=== PATIENT | female | born 1990 | race American Indian/Alaskan Native ===

== ENCOUNTER 2020-05-31 14:08 | Outpatient (CLI) | payer MEDICAID ==
[2020-05-31] MEDS ORDERED: LACTATED RINGERS 1,000 ML IV ONE (16:06)
[2020-05-31 16:28] LABS: Bilirubin,Urine NEG (Negative); Blood,Urine NEG (Negative); Color,Urine Yellow (Yellow); Protein,Urine <15 mg/dL mg/dL (Negative); Urobilinogen,Urine < 2.0 mg/dL (<2.0)
== END 2020-05-31 18:17 | disposition home or self-care (01) ==
LOC: EDSTATUS 15:23 → APU 15:29 → TRG 15:29
PROVIDERS: ATTEND Obstetrics & Gynecology
DX: O26.893 Other specified pregnancy related conditions, third trimester (principal); R10.30 Lower abdominal pain, unspecified; Z3A.30 30 weeks gestation of pregnancy
CPT/HCPCS: 59025; 81001

== ENCOUNTER 2020-08-01 15:01 | Inpatient (IN) | payer MEDICAID ==
[2020-08-01] MEDS ORDERED: MINERAL OIL 30 ML ORAL LIQD PO PRN (18:56)
[2020-08-01] MEDS ORDERED: miSOPROStol 200 MCG TAB PR PRN (18:56)
[2020-08-01] MEDS ORDERED: AMPICILLIN/NS 2 GM/100 ML 2 GM/100 ML BAG IV ONE (18:56)
[2020-08-01] MEDS ORDERED: LIDOCAINE (2%) 20 MG/1 ML VIAL 20 ML MDV INFILTRATI ONE (18:56)
[2020-08-01] MEDS ORDERED: ONDANSETRON 4 MG/2 ML INJ IV PRN (18:56)
[2020-08-01] MEDS ORDERED: NALOXONE 0.4 MG/1 ML INJ IV PRN (18:56)
[2020-08-01] MEDS ORDERED: ePHEDrine SULFATE 50 MG/1 ML INJ IV PRN (18:56)
[2020-08-01] MEDS ORDERED: TERBUTALINE 1 MG/1 ML INJ SUB-Q PRN (18:56)
[2020-08-01] MEDS ORDERED: OXYTOCIN DRIP 30 UNITS/500 ML BAG IV SCH (19:00)
--- NOTE | 2020-08-01 19:14 | History and Physical Report ---
History of Present Illness Date of examination: 08/01/20 Date of admission: 08/01/20 15:01 Chief complaint: Term induction of labor, morbid obesity in latent labor, admitted for delivery, now in early labor. 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 Pt admits to movement and feeling contractions intermittently but not painful. Denies LOF, vag bleed, and headache. 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 Past History Past Medical History: other (Morbid Obesity, Anemia) Past Surgical History: no surgical history Family/Genetic History: none Social history: no significant social history - Obstetrical History Expected Date of Delivery: 08/07/20 Actual Gestation: 39 Week(s) 1 Day(s) : 2 Hx # Term Pregnancies: 1 Number of Living Children: 1 Medications and Allergies Allergies Allergy/AdvReac Type Severity Reaction Status Date / Time No Known Allergies Allergy Verified 08/01/20 18:08 Active Meds: Active Medications Dinoprostone (Dinoprostone 10 Mg Vag Supp) 10 mg VG ONCE ONE Stop: 08/01/20 18:57 Ephedrine Sulfate (Ephedrine Sulfate 50 Mg/1 Ml Inj) 10 mg IV Q2M PRN PRN Reason: Hypotension Lactated Ringer's (Lactated Ringers) 1,000 mls @ 125 mls/hr IV DIRECT JUAREZ Oxytocin/Sodium Chloride (Pitocin/Ns 30 Unit/500ml) 30 units in 500 mls @ 40 mls/hr IV TITR JUAREZ; Protocol Ampicillin Sodium (Ampicillin/Ns 2 Gm/100 Ml) 2 gm in 100 mls @ 100 mls/hr IV ONCE ONE; Protocol Stop: 08/01/20 19:55 Lidocaine (Lidocaine (2%) 20 Mg/1 Ml Vial 20 Ml Mdv) 20 ml INFILTRATI ONCE ONE Stop: 08/01/20 18:57 Mineral Oil (Mineral Oil 30 Ml Oral Liqd) 30 ml PO QHS PRN PRN Reason: Constipation Misoprostol (Misoprostol 200 Mcg Tab) 800 mcg NC ONCE PRN PRN Reason: Uterine Bleeding Nalbuphine HCl (Nalbuphine 10 Mg/1 Ml Inj) 10 mg IV Q2H PRN PRN Reason: Pain, Moderate (4-6) Naloxone HCl (Naloxone 0.4 Mg/1 Ml Inj) 0.1 mg IV Q2MIN PRN PRN Reason: Res Rate </= 8 or 02 SAT < 92% Ondansetron HCl (Ondansetron 4 Mg/2 Ml Inj) 4 mg IV Q8H PRN PRN Reason: Nausea And Vomiting Terbutaline Sulfate (Terbutaline 1 Mg/1 Ml Inj) 0.25 mg SUB-Q ONCE PRN PRN Reason: Hyperstimulation/Hypertonicity - Vital Signs Vital signs: Vital Signs Pulse BP Pulse Ox 86 119/61 100 08/01/20 18:23 08/01/20 18:23 08/01/20 18:23 Temp Pulse Resp BP Pulse Ox 98.4 F 99 H 20 119/61 98 08/01/20 18:50 08/01/20 19:01 08/01/20 18:50 08/01/20 18:50 08/01/20 19:01 - Physical Exam Breasts: Positive: deferred Cardiovascular: Regular rate Lungs: Positive: Normal air movement Abdomen: Positive: other (gravid enlarged uterus at term) Genitourinary (Female): Positive: normal external genitalia Vulva: both: normal (normal with any active herpetic lesions) Uterus: Positive: enlarged Adnexa: both: normal (limited due to gravid uterus) Anus/Rectum: Positive: normal perianal skin Extremities: Positive: normal Deep Tendon Reflex Grade: Normal +2 - Obstetrical FHR: category 1 Uterine Contraction Monitor Mode: External Cervical Dilatation: 2 Cervical Effacement Percentage: 50 station: -3 Uterine Contraction Frequency (min): ocassional Uterine Contraction Pattern: Irregular Uterine Tone Measurement Phase: Resting Results All other labs normal. 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 Expect
[2020-08-01] MEDS ORDERED: DINOPROSTONE 10 MG VAG SUPP VG ONE (19:56)
[2020-08-01 20:26] LABS: Hematocrit 35.1 % (30.3-42.9); Hemoglobin 11.1 gm/dl (10.1-14.3); Mean Corpuscular HGB Conc 32 % (30-34); Mean Corpuscular Volume 74 fl (79-97); Platelet Count 224 K/mm3 (140-440); Red Blood Count 4.75 M/mm3 (3.65-5.03)
[2020-08-01 20:52] LABS: Red Cell Distribution Width 23.5 % (13.2-15.2)
[2020-08-02] MEDS ORDERED: AMPICILLIN/NS 2 GM/100 ML 2 GM/100 ML BAG IV ONE (02:15)
[2020-08-02] MEDS: NalbUPHINE 10 MG/1 ML INJ IV PRN ×2 (03:02→05:11)
--- NOTE | 2020-08-02 11:20 | Progress Note ---
Assessment and Plan - Patient Problems (1) Encounter for induction of labor Current Visit: Yes Status: Acute Plan to address problem: Cervidil was removed around 0830 Initiate Pitocin @ 2mu/min as tolerated Epidural as desired Anticipate (2) Positive GBS test Current Visit: Yes Status: Acute Plan to address problem: Continue GBS prophylaxis (3) Morbid obesity with BMI of 40.0-44.9, adult Current Visit: Yes Status: Chronic Subjective - Subjective Date of service: 08/02/20 Principal diagnosis: IOL; MO Interval history: See admission H & P and OB progress notes Patient reports: movement normal, contractions (irregular), no new complaints, no loss of fluid, no vaginal bleeding Objective - Vital Signs Vital Signs: Vital Signs - 12hr 08/01/20 08/02/20 08/02/20 23:17 03:13 03:18 Temperature Pulse Rate 29 L 110 H 90 Respiratory Rate Blood Pressure 114/58 O2 Sat by Pulse 46 L 99 97 Oximetry 08/02/20 08/02/20 08/02/20 03:23 03:26 03:28 Temperature Pulse Rate 92 H 89 95 H Respiratory Rate Blood Pressure O2 Sat by Pulse 96 94 95 Oximetry 08/02/20 08/02/20 08/02/20 03:33 03:36 03:38 Temperature Pulse Rate 94 H 99 H 100 H Respiratory Rate Blood Pressure O2 Sat by Pulse 97 94 96 Oximetry 08/02/20 08/02/20 08/02/20 03:43 03:48 03:52 Temperature Pulse Rate 97 H 100 H 93 H Respiratory Rate Blood Pressure O2 Sat by Pulse 94 96 91 Oximetry 08/02/20 08/02/20 08/02/20 03:53 03:58 04:03 Temperature Pulse Rate 91 H 110 H 98 H Respiratory Rate Blood Pressure O2 Sat by Pulse 99 97 95 Oximetry 08/02/20 08/02/20 08/02/20 04:08 04:11 04:13 Temperature Pulse Rate 93 H 98 H 105 H Respiratory Rate Blood Pressure O2 Sat by Pulse 98 94 97 Oximetry 08/02/20 08/02/20 08/02/20 04:18 04:23 04:28 Temperature Pulse Rate 106 H 105 H 107 H Respiratory Rate Blood Pressure O2 Sat by Pulse 97 97 98 Oximetry 08/02/20 08/02/20 08/02/20 04:31 04:33 05:12 Temperature Pulse Rate 55 L 100 H 105 H Respiratory Rate Blood Pressure O2 Sat by Pulse 85 97 97 Oximetry 08/02/20 08/02/20 08/02/20 05:17 05:52 05:57 Temperature Pulse Rate 85 110 H 93 H Respiratory Rate Blood Pressure O2 Sat by Pulse 97 97 98 Oximetry 08/02/20 08/02/20 08/02/20 06:02 06:07 06:08 Temperature Pulse Rate 95 H 94 H 99 H Respiratory Rate Blood Pressure O2 Sat by Pulse 96 95 94 Oximetry 08/02/20 08/02/20 08/02/20 06:12 06:17 06:20 Temperature Pulse Rate 90 98 H 92 H Respiratory Rate Blood Pressure O2 Sat by Pulse 96 96 94 Oximetry 08/02/20 08/02/20 08/02/20 06:22 06:25 06:27 Temperature Pulse Rate 90 93 H 99 H Respiratory Rate Blood Pressure O2 Sat by Pulse 95 93 95 Oximetry 08/02/20 08/02/20 08/02/20 06:32 06:33 06:37 Temperature Pulse Rate 95 H 98 H 101 H Respiratory Rate Blood Pressure O2 Sat by Pulse 96 94 97 Oximetry 08/02/20 08/02/20 08/02/20 06:42 06:47 06:52 Temperature Pulse Rate 106 H 98 H 106 H Respiratory Rate Blood Pressure O2 Sat by Pulse 98 97 98 Oximetry 08/02/20 08/02/20 08/02/20 06:57 07:02 07:07 Temperature Pulse Rate 97 H 101 H 104 H Respiratory Rate Blood Pressure O2 Sat by Pulse 97 98 98 Oximetry 08/02/20 08/02/20 08/02/20 07:12 07:17 07:22 Temperature Pulse Rate 92 H 93 H 95 H Respiratory Rate Blood Pressure O2 Sat by Pulse 97 98 97 Oximetry 08/02/20 08/02/20 08/02/20 07:27 07:32 07:37 Temperature Pulse Rate 93 H 99 H 94 H Respiratory Rate Blood Pressure O2 Sat by Pulse 99 98 98 Oximetry 08/02/20 08/02/20 08/02/20 07:42 08:14 08:22 Temperature 98.6 F Pulse Rate 101 H 93 H Respiratory 18 Rate Blood Pressure 114/63 O2 Sat by Pulse 100 Oximetry - Exam Breasts: deferred Cardiovascular: Regular rate Lungs: Normal air movement FHR: category 1 Uterine Contraction Monitor Mode: External Cervical Dilatation: 4 (per RN) Cervical Effacement Percentage: 60 station: -3 Uterine Contraction Frequency (min): 1-5 Uterine Contraction Pattern: Irregular Uterine Tone Measurement Phase: Resting Uterine Contraction Intensity: Mild - Labs Labs: Abnormal Labs 08/01/20 20:11 MCV 74 L MCH 23 L RDW 23.5 H Laboratory Results - last 24 hr 08/01/20 08/01/20 20:11 20:11 WBC 9.4 RBC 4.75 Hgb 11.1 Hct 35.1 MCV 74 L MCH 23 L MCHC 32 RDW 23.5 H Plt Count 224 Blood Type AB POSITIVE Antibody Screen Negative
[2020-08-02] MEDS: AMPICILLIN/NS 1 GM/50 ML 1 GM/50 ML BAG IV SCH ×3 (11:39→21:04)
[2020-08-02] MEDS: LACTATED RINGERS 1,000 ML IV SCH (11:39)
[2020-08-02] MEDS: OXYTOCIN DRIP 30 UNITS/500 ML BAG IV SCH (12:10)
--- NOTE | 2020-08-02 22:15 | Progress Note ---
Assessment and Plan - Patient Problems (1) Encounter for induction of labor Current Visit: Yes Status: Acute Plan to address problem: Give Pitocin break, may eat and shower then, Initiate low-dose Pitocin as tolerated Epidural as desired Anticipate (2) Positive GBS test Current Visit: Yes Status: Acute Plan to address problem: Continue GBS prophylaxis (3) Morbid obesity with BMI of 40.0-44.9, adult Current Visit: Yes Status: Chronic Subjective - Subjective Date of service: 08/02/20 Principal diagnosis: IOL; MO Interval history: See admission H & P and OB progress notes Patient reports: movement normal, contractions (irregular), no new complaints, no loss of fluid, no vaginal bleeding Objective - Vital Signs Vital Signs: Vital Signs - 12hr 08/02/20 08/02/20 08/02/20 17:13 17:17 19:00 Temperature 99.0 F 98 F Pulse Rate 90 Respiratory 19 Rate Blood Pressure 128/74 08/02/20 20:14 Temperature Pulse Rate 100 H Respiratory Rate Blood Pressure 121/68 - Exam Breasts: deferred Cardiovascular: Regular rate Lungs: Normal air movement FHR: category 1 Uterine Contraction Monitor Mode: External Cervical Dilatation: 4 (per RN) Cervical Effacement Percentage: 60 (Pitocin @ 12mu/min) station: -3 Uterine Contraction Frequency (min): 2-4 Uterine Contraction Pattern: Irregular Uterine Tone Measurement Phase: Resting Uterine Contraction Intensity: Mild Extremities: edema - Labs Labs: Abnormal Labs 08/01/20 20:11 MCV 74 L MCH 23 L RDW 23.5 H
[2020-08-03] MEDS: AMPICILLIN/NS 1 GM/50 ML 1 GM/50 ML BAG IV SCH ×2 (01:13→04:49)
[2020-08-03] MEDS: OXYTOCIN DRIP 30 UNITS/500 ML BAG IV SCH (01:14)
[2020-08-03] MEDS: LACTATED RINGERS 1,000 ML IV SCH (04:49)
--- NOTE | 2020-08-03 10:10 | Progress Note ---
Assessment and Plan A: IUP @ 39 3/7 Weeks Category I Tracing Morbid Maternal Obesity GBS Positive P: Continue Pitocin Induction Continue GBS Prophylaxis Multiple Maternal Position Changes Subjective - Subjective Principal diagnosis: IOL; MO Patient reports: movement normal, contractions (irregular), no new complaints, no loss of fluid, no vaginal bleeding Objective - Vital Signs Vital Signs: Vital Signs - 12hr 08/03/20 08/03/20 08/03/20 01:13 01:32 04:41 Temperature 98.2 F Pulse Rate 93 H Respiratory 19 Rate Blood Pressure 119/70 Blood Pressure [Right] O2 Sat by Pulse Oximetry 08/03/20 08/03/20 08/03/20 04:51 09:30 09:33 Temperature 97.6 F Pulse Rate 93 H 93 H 96 H Respiratory 18 Rate Blood Pressure 121/56 123/74 Blood Pressure 123/74 [Right] O2 Sat by Pulse 98 97 Oximetry 08/03/20 08/03/20 08/03/20 09:38 09:43 09:48 Temperature Pulse Rate 95 H 99 H 92 H Respiratory Rate Blood Pressure Blood Pressure [Right] O2 Sat by Pulse 98 98 97 Oximetry - Exam Breasts: normal Cardiovascular: Regular rate Lungs: Clear to auscultation, Normal air movement Abdomen: Present: normal appearance, soft, normal bowel sounds Vulva: right: lichenification Uterus: Present: normal, firm, fundal height above umbilicus FHR: category 1 Uterine Contraction Monitor Mode: External Cervical Dilatation: 3 (intact; Vtx) Cervical Effacement Percentage: 60 station: -2 Uterine Contraction Pattern: Irregular Uterine Tone Measurement Phase: Resting Uterine Contraction Intensity: Mild Extremities: normal - Labs Labs: Abnormal Labs 08/01/20 20:11 MCV 74 L MCH 23 L RDW 23.5 H
--- NOTE | 2020-08-03 13:46 | Progress Note ---
Assessment and Plan A: IUP @ 39 3/7 Weeks Category I Tracing Morbid Maternal Obesity GBS Positive P: AROM IUPC placed Continue Pitocin Induction Continue GBS Prophylaxis Prepare for Epidural Anesthesia Subjective - Subjective Date of service: 08/03/20 Principal diagnosis: IOL; MO Patient reports: movement normal, contractions (regular, more intense), no new complaints, no vaginal bleeding Objective - Vital Signs Vital Signs: Vital Signs - 12hr 08/03/20 08/03/20 08/03/20 04:41 04:51 09:30 Temperature 97.6 F Pulse Rate 93 H 93 H Respiratory 19 18 Rate Blood Pressure 121/56 Blood Pressure 123/74 [Right] O2 Sat by Pulse 98 Oximetry 08/03/20 08/03/20 08/03/20 09:33 09:38 09:43 Temperature Pulse Rate 96 H 95 H 99 H Respiratory Rate Blood Pressure 123/74 Blood Pressure [Right] O2 Sat by Pulse 97 98 98 Oximetry 08/03/20 08/03/20 08/03/20 09:48 10:32 10:35 Temperature Pulse Rate 92 H 102 H 25 L Respiratory Rate Blood Pressure Blood Pressure [Right] O2 Sat by Pulse 97 99 78 L Oximetry 08/03/20 08/03/20 08/03/20 11:16 11:21 11:26 Temperature Pulse Rate 92 H 85 86 Respiratory Rate Blood Pressure Blood Pressure [Right] O2 Sat by Pulse 98 98 98 Oximetry 08/03/20 08/03/20 08/03/20 11:32 11:33 11:37 Temperature Pulse Rate 83 88 88 Respiratory Rate Blood Pressure Blood Pressure [Right] O2 Sat by Pulse 98 94 93 Oximetry 08/03/20 08/03/20 08/03/20 11:42 12:27 12:31 Temperature Pulse Rate 78 86 99 H Respiratory Rate Blood Pressure Blood Pressure [Right] O2 Sat by Pulse 98 99 86 Oximetry 08/03/20 12:32 Temperature Pulse Rate 82 Respiratory Rate Blood Pressure Blood Pressure [Right] O2 Sat by Pulse 100 Oximetry - Exam Breasts: normal Cardiovascular: Regular rate Lungs: Clear to auscultation, Normal air movement Abdomen: Present: normal appearance, soft Uterus: Present: normal, firm, fundal height above umbilicus FHR: category 1 Uterine Contraction Monitor Mode: External Cervical Dilatation: 3 (Moderate amount of clear fluid upon AROM at 1331) Cervical Effacement Percentage: 70 station: -2 Uterine Contraction Frequency (min): 1-2 Uterine Contraction Duration: 60 Uterine Contraction Pattern: Regular Uterine Tone Measurement Phase: Resting Uterine Contraction Intensity: Moderate Extremities: normal - Labs Labs: Abnormal Labs 08/01/20 20:11 MCV 74 L MCH 23 L RDW 23.5 H
--- NOTE | 2020-08-03 15:27 | Anesthesia Consultation ---
Anesthesia Consult and Med Hx Date of service: 08/03/20 - Airway Anesthetic Teeth Evaluation: Good ROM Head & Neck: Adequate Mental/Hyoid Distance: Adequate Mallampati Class: Class II Intubation Access Assessment: Probably Good - Pulmonary Exam CTA: Yes - Cardiac Exam Cardiac Exam: RRR - Pre-Operative Health Status ASA Pre-Surgery Classification: ASA3 Proposed Anesthetic Plan: Epidural - Pulmonary Hx Smoking: No Hx Asthma: No Hx Respiratory Symptoms: No SOB: No COPD: No Home Oxygen Therapy: No Hx Pneumonia: No Hx Sleep Apnea: No - Cardiovascular System Hx Hypertension: No Hx Coronary Artery Disease: No Hx Heart Attack/AMI: No Hx Angina: No Hx Percutaneous Transluminal Coronary Angioplasty (PTCA): No Hx Cardia Arrhythmia: No Hx Pacemaker: No Hx Internal Defibrillator: No Hx Valvular Heart Disease: No Hx Heart Murmur: No Hx Peripheral Vascular Disease: No - Central Nervous System Hx Neuromuscular Disorder: No Hx Seizures: No CVA: No Hx Back Pain: No Hx Psychiatric Problems: No - Gastrointestinal Hx Ulcer: No Hx Gastroesophageal Reflux Disease: No - Endocrine Hx Renal Disease: No Hx End Stage Renal Disease: No Hx Cirrhosis: No Hx Liver Disease: No Hx Insulin Dependent Diabetes: No Hx Non-Insulin Dependent Diabetes: No Hx Thyroid Disease: No Hx Hypothyroidism: No Hx Hyperthyroidism: No - Hematic Hx Anemia: Yes Hx Sickle Cell Disease: No - Other Systems Hx Alcohol Use: No Hx Substance Use: No Hx Cancer: No Hx Obesity: Yes
[2020-08-03] MEDS ORDERED: BUTORPHANOL 2 MG/1 ML INJ ONE (15:29)
[2020-08-03] MEDS ORDERED: BUTORPHANOL 2 MG/1 ML INJ IV ONE (15:30)
--- NOTE | 2020-08-03 15:30 | Progress Note ---
Labor Epidural - Labor Epidural Start Time: 21:19 Stop Time: 21:42 Performed by:: CHARLA SMITH Procedure: Patient is requesting a laboring epidural for laboring pain. Patient IDed, H&P reviewed, all questions and concerns were answered, and consent was signed. Timeout was performed at bedside. Patient in sitting position. Sterile prep and drape was performed. [3] ml of 1% lidocaine skin wheal at L[3]- L [4]. 18- gauge Tuohy epidural needle was advanced to loss of resistance with air technique multiple attempts which was unsuccess. Procedure was aborted. Patient wishes to try placing again. Timeout was performed at bedside. Patient in sitting position. Sterile prep and drape was performed. [5] ml of 1% lidocaine skin wheal at L[3]- L [4]. 18-gauge Tuohy epidural needle was advanced to loss of resistance with air technique to 9.5cm. Negative CSF negative blood via Tuohy needle. #27g Spinal needle clear, free flowing CSF, Pecedex 10 mcg. Epidural catheter advanced to [14] centimeters. [negative] Aspiration [negative] test dose. Sterile dressing applied. Patient tolerated procedure.
[2020-08-03] MEDS ORDERED: NALOXONE 2 MG/2 ML INJ IV PRN (16:00)
[2020-08-03] MEDS ORDERED: BUTORPHANOL 2 MG/1 ML INJ IV SCH (17:30)
--- NOTE | 2020-08-03 18:30 | Progress Note ---
Assessment and Plan A: IUP @ 39 3/7 Weeks Category II Tracing Morbid Maternal Obesity Poor Maternal Pain Control GBS Positive P: Continue Pitocin Induction Continue GBS Prophylaxis Consult Anesthesia for Epidural Subjective - Subjective Date of service: 08/03/20 Principal diagnosis: IOL; MO Patient reports: movement normal, contractions, other (Complains of intense contraction pain; IV pain medication (Stadol) is ineffective; RYAN Powers, attemped to place epidural x 4 but was unsuccessful due to body habitus and poor patient control. Patient agrees for RYAN Powers, to return to room and attempt to place epidural again), no new complaints, no vaginal bleeding Objective - Vital Signs Vital Signs: Vital Signs - 12hr 08/03/20 08/03/20 08/03/20 09:30 09:33 09:38 Temperature 97.6 F Pulse Rate 93 H 96 H 95 H Respiratory 18 Rate Blood Pressure 123/74 Blood Pressure 123/74 [Right] O2 Sat by Pulse 98 97 98 Oximetry 08/03/20 08/03/20 08/03/20 09:43 09:48 10:32 Temperature Pulse Rate 99 H 92 H 102 H Respiratory Rate Blood Pressure Blood Pressure [Right] O2 Sat by Pulse 98 97 99 Oximetry 08/03/20 08/03/20 08/03/20 10:35 11:16 11:21 Temperature Pulse Rate 25 L 92 H 85 Respiratory Rate Blood Pressure Blood Pressure [Right] O2 Sat by Pulse 78 L 98 98 Oximetry 08/03/20 08/03/20 08/03/20 11:26 11:32 11:33 Temperature Pulse Rate 86 83 88 Respiratory Rate Blood Pressure Blood Pressure [Right] O2 Sat by Pulse 98 98 94 Oximetry 08/03/20 08/03/20 08/03/20 11:37 11:42 12:27 Temperature Pulse Rate 88 78 86 Respiratory Rate Blood Pressure Blood Pressure [Right] O2 Sat by Pulse 93 98 99 Oximetry 08/03/20 08/03/20 08/03/20 12:31 12:32 14:09 Temperature Pulse Rate 99 H 82 87 Respiratory Rate Blood Pressure Blood Pressure [Right] O2 Sat by Pulse 86 100 100 Oximetry 08/03/20 08/03/20 08/03/20 14:14 16:04 16:09 Temperature Pulse Rate 83 104 H 93 H Respiratory Rate Blood Pressure Blood Pressure [Right] O2 Sat by Pulse 100 100 96 Oximetry 08/03/20 08/03/20 08/03/20 16:12 16:14 16:19 Temperature Pulse Rate 91 H 86 92 H Respiratory Rate Blood Pressure Blood Pressure [Right] O2 Sat by Pulse 94 98 100 Oximetry 08/03/20 08/03/20 08/03/20 16:24 16:26 16:29 Temperature Pulse Rate 94 H 86 90 Respiratory Rate Blood Pressure Blood Pressure [Right] O2 Sat by Pulse 96 93 98 Oximetry 08/03/20 08/03/20 08/03/20 16:34 16:39 16:44 Temperature Pulse Rate 89 87 96 H Respiratory Rate Blood Pressure Blood Pressure [Right] O2 Sat by Pulse 96 98 99 Oximetry 08/03/20 08/03/20 08/03/20 16:49 16:54 16:55 Temperature Pulse Rate 93 H 108 H 100 H Respiratory Rate Blood Pressure Blood Pressure [Right] O2 Sat by Pulse 96 98 92 Oximetry 08/03/20 16:59 Temperature Pulse Rate 95 H Respiratory Rate Blood Pressure Blood Pressure [Right] O2 Sat by Pulse 98 Oximetry - Exam Breasts: normal Cardiovascular: Regular rate Lungs: Clear to auscultation, Normal air movement Abdomen: Present: normal appearance, soft Uterus: Present: normal, firm, fundal height above umbilicus FHR: category 2, other FHR comments: FHR: 138, min to moderate varability, +isolated mild varabile decels, and +isolated early decels, -accels Uterine Contraction Monitor Mode: Internal Cervical Dilatation: 4.5 (leaking a moderate amount of clear fluid) Cervical Effacement Percentage: 70 station: -2 Uterine Contraction Frequency (min): 1-5 Uterine Contraction Pattern: Irregular Uterine Tone Measurement Phase: Resting Uterine Contraction Intensity: Moderate Extremities: normal - Labs Labs: Abnormal Labs 08/01/20 20:11 MCV 74 L MCH 23 L RDW 23.5 H Laboratory Results - last 24 hr 08/02/20 11:26 Coronavirus (PCR) Negative
[2020-08-03] MEDS ORDERED: fentaNYL 100 MCG/2 ML INJ IV ONE (19:23)
[2020-08-03] MEDS: fentaNYL-BUPIV 2 MCG/ML-0.125% 200 MCG/100 ML BAG EPIDURAL SCH (22:00)
[2020-08-03] MEDS: ePHEDrine SULFATE 50 MG/1 ML INJ IV PRN (22:44)
[2020-08-04] MEDS: ePHEDrine SULFATE 50 MG/1 ML INJ IV PRN ×2 (00:26→01:54)
[2020-08-04] MEDS: LACTATED RINGERS 1,000 ML IV SCH ×2 (02:17→07:15)
--- NOTE | 2020-08-04 03:22 | Progress Note ---
Assessment and Plan A: IUP @ 39 3/7 Weeks Category I Tracing Morbid Maternal Obesity GBS Positive P: ISE Placed Continue Pitocin Induction Continue GBS Prophylaxis Consult Anesthesia for Epidural Subjective - Subjective Date of service: 08/04/20 Principal diagnosis: IOL; MO Patient reports: movement normal, other (Resting well under epidural anesthesia), no new complaints, no vaginal bleeding Objective - Vital Signs Vital Signs: Vital Signs - 12hr 08/03/20 08/03/20 08/03/20 16:04 16:09 16:12 Temperature Pulse Rate 104 H 93 H 91 H Respiratory Rate Blood Pressure Blood Pressure [Right] O2 Sat by Pulse 100 96 94 Oximetry 08/03/20 08/03/20 08/03/20 16:14 16:19 16:24 Temperature Pulse Rate 86 92 H 94 H Respiratory Rate Blood Pressure Blood Pressure [Right] O2 Sat by Pulse 98 100 96 Oximetry 08/03/20 08/03/20 08/03/20 16:26 16:29 16:34 Temperature Pulse Rate 86 90 89 Respiratory Rate Blood Pressure Blood Pressure [Right] O2 Sat by Pulse 93 98 96 Oximetry 08/03/20 08/03/20 08/03/20 16:39 16:44 16:49 Temperature Pulse Rate 87 96 H 93 H Respiratory Rate Blood Pressure Blood Pressure [Right] O2 Sat by Pulse 98 99 96 Oximetry 08/03/20 08/03/20 08/03/20 16:54 16:55 16:59 Temperature Pulse Rate 108 H 100 H 95 H Respiratory Rate Blood Pressure Blood Pressure [Right] O2 Sat by Pulse 98 92 98 Oximetry 08/03/20 08/03/20 08/03/20 19:16 19:18 19:19 Temperature 98.1 F Pulse Rate 112 H 112 H 107 H Respiratory 12 Rate Blood Pressure 133/84 Blood Pressure 133/84 [Right] O2 Sat by Pulse 99 98 68 L Oximetry 08/03/20 08/03/20 08/03/20 19:23 19:25 19:28 Temperature Pulse Rate 91 H 103 H 93 H Respiratory Rate Blood Pressure Blood Pressure [Right] O2 Sat by Pulse 98 93 99 Oximetry 08/03/20 08/03/20 08/03/20 19:33 19:38 19:43 Temperature Pulse Rate 119 H 86 103 H Respiratory Rate Blood Pressure Blood Pressure [Right] O2 Sat by Pulse 93 96 100 Oximetry 08/03/20 08/03/20 08/03/20 19:48 19:53 19:58 Temperature Pulse Rate 99 H 91 H 87 Respiratory Rate Blood Pressure Blood Pressure [Right] O2 Sat by Pulse 99 98 97 Oximetry 08/03/20 08/03/20 08/03/20 20:03 20:08 20:13 Temperature Pulse Rate 103 H 92 H 94 H Respiratory Rate Blood Pressure Blood Pressure [Right] O2 Sat by Pulse 96 99 95 Oximetry 08/03/20 08/03/20 08/03/20 20:18 20:23 20:28 Temperature Pulse Rate 87 88 105 H Respiratory Rate Blood Pressure Blood Pressure [Right] O2 Sat by Pulse 100 96 99 Oximetry 08/03/20 08/03/20 08/03/20 21:17 21:22 21:27 Temperature Pulse Rate 104 H 98 H 105 H Respiratory Rate Blood Pressure Blood Pressure [Right] O2 Sat by Pulse 99 95 100 Oximetry 08/03/20 08/03/20 08/03/20 21:32 21:37 21:42 Temperature Pulse Rate 104 H 105 H 102 H Respiratory Rate Blood Pressure Blood Pressure [Right] O2 Sat by Pulse 100 98 100 Oximetry 08/03/20 08/03/20 08/03/20 21:47 21:49 21:52 Temperature Pulse Rate 111 H 114 H 111 H Respiratory Rate Blood Pressure 117/57 Blood Pressure [Right] O2 Sat by Pulse 100 99 Oximetry 08/03/20 08/03/20 08/03/20 21:57 22:02 22:07 Temperature Pulse Rate 104 H 104 H 96 H Respiratory Rate Blood Pressure 107/51 Blood Pressure [Right] O2 Sat by Pulse 99 99 100 Oximetry 08/03/20 08/03/20 08/03/20 22:10 22:12 22:17 Temperature Pulse Rate 105 H 77 93 H Respiratory Rate Blood Pressure 92/55 Blood Pressure [Right] O2 Sat by Pulse 99 100 Oximetry 08/03/20 08/03/20 08/03/20 22:22 22:26 22:27 Temperature Pulse Rate 89 87 88 Respiratory Rate Blood Pressure 85/45 Blood Pressure [Right] O2 Sat by Pulse 100 100 Oximetry 08/03/20 08/03/20 08/03/20 22:32 22:37 22:40 Temperature Pulse Rate 91 H 90 89 Respiratory Rate Blood Pressure 71/40 Blood Pressure [Right] O2 Sat by Pulse 100 99 Oximetry 08/03/20 08/03/20 08/03/20 22:41 22:42 22:47 Temperature Pulse Rate 96 H 102 H 80 Respiratory Rate Blood Pressure 73/38 Blood Pressure [Right] O2 Sat by Pulse 100 98 Oximetry 08/03/20 08/03/20 08/03/20 22:52 22:56 22:57 Temperature Pulse Rate 90 85 93 H Respiratory Rate Blood Pressure 69/38 Blood Pressure [Right] O2 Sat by Pulse 99 97 Oximetry 08/03/20 08/03/20 08/03/20 23:02 23:07 23:10 Temperature Pulse Rate 105 H 95 H 97 H Respiratory Rate Blood Pressure Blood Pressure [Right] O2 Sat by Pulse 100 98 94 Oximetry 08/03/20 08/03/20 08/03/20 23:11 23:12 23:17 Temperature Pulse Rate 100 H 100 H 92 H Respiratory Rate Blood Pressure 69/33 Blood Pressure [Right] O2 Sat by Pulse 87 100 Oximetry 08/03/20 08/03/20 08/03/20 23:22 23:26 23:27 Temperature Pulse Rate 99 H 94 H 89 Respiratory Rate Blood Pressure 72/37 Blood Pressure [Right] O2 Sat by Pulse 100 98 Oximetry 08/03/20 08/03/20 08/03/20 23:32 23:37 23:42 Temperature Pulse Rate 95 H 88 87 Respiratory Rate Blood Pressure 89/45 Blood Pressure [Right] O2 Sat by Pulse 98 100 97 Oximetry 08/03/20 08/03/20 08/03/20 23:47 23:52 23:56 Temperature Pulse Rate 94 H 86 85 Respiratory Rate Blood Pressure 73/36 Blood Pressure [Right] O2 Sat by Pulse 98 97 Oximetry 08/03/20 08/04/20 08/04/20 23:57 00:02 00:07 Temperature Pulse Rate 90 77 103 H Respiratory Rate Blood Pressure Blood Pressure [Right] O2 Sat by Pulse 96 96 95 Oximetry 08/04/20 08/04/20 08/04/20 00:11 00:12 00:17 Temperature Pulse Rate 85 85 82 Respiratory Rate Blood Pressure 71/40 Blood Pressure [Right] O2 Sat by Pulse 97 97 Oximetry 08/04/20 08/04/20 08/04/20 00:21 00:22 00:27 Temperature Pulse Rate 88 97 H 79 Respiratory Rate Blood Pressure 66/35 88/49 Blood Pressure [Right] O2 Sat by Pulse 96 96 Oximetry 08/04/20 08/04/20 08/04/20 00:32 00:37 00:41 Temperature Pulse Rate 85 89 93 H Respiratory Rate Blood Pressure 81/41 Blood Pressure [Right] O2 Sat by Pulse 96 96 Oximetry 08/04/20 08/04/20 08/04/20 00:42 00:47 00:52 Temperature Pulse Rate 100 H 86 90 Respiratory Rate Blood Pressure Blood Pressure [Right] O2 Sat by Pulse 94 96 97 Oximetry 08/04/20 08/04/20 08/04/20 00:57 00:58 01:02 Temperature Pulse Rate 103 H 91 H 86 Respiratory Rate Blood Pressure 85/44 Blood Pressure [Right] O2 Sat by Pulse 97 97 Oximetry 08/04/20 08/04/20 08/04/20 01:07 01:11 01:12 Temperature Pulse Rate 86 88 83 Respiratory Rate Blood Pressure 87/47 Blood Pressure [Right] O2 Sat by Pulse 97 96 Oximetry 08/04/20 08/04/20 08/04/20 01:17 01:22 01:27 Temperature Pulse Rate 93 H 86 95 H Respiratory Rate Blood Pressure 82/43 Blood Pressure [Right] O2 Sat by Pulse 96 97 95 Oximetry 08/04/20 08/04/20 08/04/20 01:32 01:37 01:41 Temperature Pulse Rate 77 104 H 96 H Respiratory Rate Blood Pressure 79/44 Blood Pressure [Right] O2 Sat by Pulse 97 98 Oximetry 08/04/20 08/04/20 08/04/20 01:42 01:47 01:52 Temperature Pulse Rate 98 H 93 H 103 H Respiratory Rate Blood Pressure Blood Pressure [Right] O2 Sat by Pulse 100 100 100 Oximetry 08/04/20 08/04/20 08/04/20 01:53 01:57 01:59 Temperature Pulse Rate 96 H 87 90 Respiratory Rate Blood Pressure 85/45 105/53 Blood Pressure [Right] O2 Sat by Pulse 100 Oximetry 08/04/20 08/04/20 08/04/20 02:02 02:07 02:12 Temperature Pulse Rate 85 95 H 91 H Respiratory Rate Blood Pressure 106/58 Blood Pressure [Right] O2 Sat by Pulse 100 100 100 Oximetry 08/04/20 08/04/20 08/04/20 02:17 02:22 02:23 Temperature Pulse Rate 83 98 H 93 H Respiratory Rate Blood Pressure 109/63 Blood Pressure [Right] O2 Sat by Pulse 100 100 Oximetry 08/04/20 08/04/20 08/04/20 02:27 02:32 02:37 Temperature Pulse Rate 83 82 92 H Respiratory Rate Blood Pressure Blood Pressure [Right] O2 Sat by Pulse 100 100 100 Oximetry 08/04/20 08/04/20 08/04/20 02:42 02:47 02:52 Temperature Pulse Rate 120 H 84 91 H Respiratory Rate Blood Pressure Blood Pressure [Right] O2 Sat by Pulse 100 100 100 Oximetry 08/04/20 08/04/20 08/04/20 02:57 03:02 03:07 Temperature Pulse Rate 78 97 H 92 H Respiratory Rate Blood Pressure 121/59 Blood Pressure [Right] O2 Sat by Pulse 100 100 100 Oximetry 08/04/20 03:12 Temperature Pulse Rate 97 H Respiratory Rate Blood Pressure Blood Pressure [Right] O2 Sat by Pulse 100 Oximetry - Exam Breasts: normal Cardiovascular: Regular rate Lungs: Clear to auscultation, Normal air movement Abdomen: Present: normal appearance, soft, normal bowel sounds Uterus: Present: normal, firm, fundal height above umbilicus FHR: category 1 Uterine Contraction Monitor Mode: Internal Cervical Dilatation: 7 (leaking a moderate amount of clear fluid) Cervical Effacement Percentage: 80 station: -2 Uterine Contraction Pattern: Irregular Uterine Tone Measurement Phase: Resting Uterine Contraction Intensity: Mild Extremities: normal - Labs Labs: Abnormal Labs 08/01/20 20:11 MCV 74 L MCH 23 L RDW 23.5 H Laboratory Results - last 24 hr 08/02/20 11:26 Coronavirus (PCR) Negative
[2020-08-04] MEDS: AMPICILLIN/NS 1 GM/50 ML 1 GM/50 ML BAG IV SCH (05:59)
[2020-08-04] MEDS: fentaNYL-BUPIV 2 MCG/ML-0.125% 200 MCG/100 ML BAG EPIDURAL SCH (06:02)
[2020-08-04] MEDS ORDERED: LIDOCAINE (2%) 20 MG/1 ML VIAL 20 ML MDV INFILTRATI ONE (08:36)
[2020-08-04] MEDS ORDERED: PROMETHAZINE 25 MG RECT SUPP PR PRN (10:00)
[2020-08-04] MEDS ORDERED: WITCH HAZEL/ GLYCERIN PAD TP PRN (10:00)
[2020-08-04] MEDS ORDERED: ONDANSETRON 4 MG/2 ML INJ IV PRN (10:00)
[2020-08-04] MEDS ORDERED: LANOLIN/ZINC/DIMETHICONE (LANSINOH) 7 GM TP PRN (10:00)
[2020-08-04] MEDS ORDERED: PROMETHAZINE 25 MG TAB PO PRN (10:00)
[2020-08-04] MEDS ORDERED: diphenhydrAMINE 25 MG CAP PO PRN (10:00)
--- NOTE | 2020-08-04 11:20 | Procedure Note ---
OB Delivery Note - Delivery Date of Delivery: 08/04/20 Surgeon: GONZALES SHAHID Public [employer] Microbiologist: GONZALES SHAHID Estimated blood loss: 300cc - Vaginal Delivery presentation: vertex Delivery position: OA Intrapartum events: none Delivery induction: cervidil Delivery augmentation: rupture of membranes, pitocin Delivery monitor: external FHT, external uterine Route of delivery: Delivery placenta: spontaneous Delivery cord: nuchal cord, 3 umbilical vessels Episiotomy: none Delivery laceration: 1st degree, vaginal side wall Delivery repair: vicryl Anesthesia: epidural Delivery comments: Called to for delivery. SVE 10/100%/+1 and pt was pushing. of a live viable male infant in OA position. Spont del of head with nuchal cord times 1 by SNM. Preceptor and manual writer at students's side. Infant's shoulders and body was somersaulted out of pt's vagina and nuchal was slipped over infant's head by SNM. Baby was placed on mom's chest for initial bonding while KATINA nurse dried and stimulated . Delayed cord clamping x 90 sec then cord was clamped x 2 and mom was allowed to cut the cord. Baby was taken to warmer by KATINA nurse for an assess. 8/9. Spontaneous delivery of an intact placenta with CVX3. FF@ U1 with fundal massage and IV Pitocin. Exploration of tears revealed a bleeding 1st degree left vag wall laceration which was repaired by the SNM with a 3-0 Vicryl on a CT1. EBL 300cc. FW 3629 Gms. Mom and baby left in stable condition in with nurse. - A at 1 minute: 8 at 5 minutes: 9 Gender: Male (FW 3629 Gms)
[2020-08-04] MEDS: IBUPROFEN 600 MG TAB PO SCH ×2 (11:22→18:31)
--- NOTE | 2020-08-04 17:53 | Post Anesthesia Evaluation ---
- Post Anesthesia Evaluation Patient Participated: Yes Airway Patent: Yes Stable Respiratory Function: Yes Nausea/Vomiting: No Temp > 96.8F: Yes Pain Manageable: Yes Adequeate Hydration: Yes Anesthesia Complications: No Block Receding Appropriately: Yes Patient on Ventilator: No
[2020-08-04 20:45] LABS: Hematocrit 31.7 % (30.3-42.9); Hemoglobin 9.9 gm/dl (10.1-14.3)
[2020-08-04] MEDS ORDERED: MAGNESIUM HYDROXIDE (MOM) ORAL LIQD UDC PO PRN (22:00)
[2020-08-05] MEDS: IBUPROFEN 600 MG TAB PO SCH ×5 (00:40→23:49)
--- NOTE | 2020-08-05 11:08 | Discharge Summary ---
Providers - Providers Date of Admission: 08/01/20 15:01 Date of discharge: 08/06/20 Attending physician: LUIS LAGUERRE JR, MD Primary care physician: LUIS LAGUERRE JR, MD Hospitalization Reason for admission: induction of labor Delivery: Episiotomy: none Laceration: 1st degree, other (vaginal side wall laceration, both healing as expected) Other procedures: none complications: none Discharge diagnosis: IUP at term delivered, other (anemia) baby: male Hospital course: See admission H & P; OB delivery summary and PP progress notes Condition at discharge: Good Disposition: DC-01 TO HOME OR SELFCARE - Discharge Diagnoses (1) Morbid obesity with BMI of 40.0-44.9, adult Status: Chronic (2) Status post normal vaginal delivery Status: Acute (3) Anemia Status: Acute Qualifiers: Anemia type: other cause Other causes of anemia: acute posthemorrhagic Qualified Code(s): D62 - Acute posthemorrhagic anemia Comment: Asymptomatic Plan - Provider Discharge Summary Activity: routine, no sex for 6 weeks, no heavy lifting 4 weeks, no strenuous exercise Diet: other (Iron rich diet) Instructions: routine Additional instructions: [] Smoking cessation referral if applicable(refer to patient education folder for contact #) [] Refer to [facility]'s [facility] Booklet Call your doctor immediately for: * Fever > 100.5 * Heavy vaginal bleeding ( >1 pad per hour) * Severe persistent headache * Shortness of breath * Reddened, hot, painful area to leg or breast * Drainage or odor from incision. * Keep laceration site clean and dry at all times and follow doctor's instructions regarding bathing/showering - Follow up plan Follow up: LUIS LAGUERRE JR, MD [Primary Care Provider] - 6 Weeks
[2020-08-06] MEDS: IBUPROFEN 600 MG TAB PO SCH (06:12)
[2020-08-06 13:42] VITALS: BP 132/74
== END 2020-08-06 14:00 | disposition home or self-care (01) | DRG 774 ==
LOC: LD 15:01 → OB 08-04 11:45
PROVIDERS: ADMIT Obstetrics & Gynecology; ATTEND Obstetrics & Gynecology
PROC: 3E0P7VZ Introduction of Hormone into Female Reproductive, Via Natural or Artificial Opening (ICD-10-PCS; principal; 2020-08-03)
PROC: 3E0R3BZ Introduction of Anesthetic Agent into Spinal Canal, Percutaneous Approach (ICD-10-PCS; 2020-08-03)
PROC: 00HU33Z Insertion of Infusion Device into Spinal Canal, Percutaneous Approach (ICD-10-PCS; 2020-08-03)
PROC: 10907ZC Drainage of Amniotic Fluid, Therapeutic from Products of Conception, Via Natural or Artificial Opening (ICD-10-PCS; 2020-08-03)
PROC: 10H07YZ Insertion of Other Device into Products of Conception, Via Natural or Artificial Opening (ICD-10-PCS; 2020-08-03)
PROC: 0HQ9XZZ Repair Perineum Skin, External Approach (ICD-10-PCS; 2020-08-04)
PROC: 10E0XZZ Delivery of Products of Conception, External Approach (ICD-10-PCS; 2020-08-04)
DX: O99.214 Obesity complicating childbirth (principal); O98.52 Other viral diseases complicating childbirth; Z3A.39 39 weeks gestation of pregnancy; Z37.0 Single live birth; E66.01 Morbid (severe) obesity due to excess calories; B00.9 Herpesviral infection, unspecified; O99.824 Streptococcus B carrier state complicating childbirth; O69.81X0 Labor and delivery complicated by cord around neck, without compression, not applicable or unspecified; O70.0 First degree perineal laceration during delivery; O90.81 Anemia of the puerperium; D62 Acute posthemorrhagic anemia; Z20.828 Contact with and (suspected) exposure to other viral communicable diseases
CPT/HCPCS: 36415; 59200; 85014; 85018; 85027; 86850; 86900; 86901; G0378; A6250; J0290; J0595; J2300; J2405; J2590; J3010; J7120; U0003